=== PATIENT | male | born 1955 | race African-American/Black ===

== ENCOUNTER 2017-11-21 09:47 | Emergency (ER) | payer SELFPAY ==
[~2017-11-21] VITALS: Ht 177.8 cm; Wt 104.5 kg
[2017-11-21 09:49] VITALS: BP 139/79; TEMP 97.9
[2017-11-21 10:22] VITALS: PULSE 71
== END 2017-11-21 10:22 | disposition home or self-care (01) ==
LOC: COL.ER 09:47
DX: S61.217A Laceration without foreign body of left little finger without damage to nail, initial encounter (principal); W26.8XXA Contact with other sharp object(s), not elsewhere classified, initial encounter; Y92.89 Other specified places as the place of occurrence of the external cause